=== PATIENT | male | born 1955 | race Caucasian/White ===

== ENCOUNTER 2016-10-22 14:07 | Observation (INO) | payer BC ==
[~2016-10-22] VITALS: Ht 170.2 cm; Wt 84.3 kg
--- NOTE | ~2016-10-22 | CON ---
PATIENT'S NAME: DOLORES MULLIGAN [facility] AGE: 61 Y [address] ROOM: [place] [address] [place]ATION: [facility] [place] DATE: 10/22/2016 Consultation DISCHARGE DATE: FAMILY PHYSICIAN: Andrea Newsome MD ATTENDING PHYSICIAN: KIT GASTON REFERRING PHYSICIAN: JOCELYN WICK MD ADDENDUM: I had an interruption to my dictation. The patient did not have any new focal neurological deficits here and his speech remained normal. No evidence of new aphasia. PRIOR MEDICAL HISTORY: History of hypertension. No known history of diabetes or coronary artery disease. ALLERGIES: NO KNOWN DRUG ALLERGIES. FAMILY HISTORY: Inconsistent with any stroke. SOCIAL HISTORY: He is . 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 He does admit to drinking fairly heavily on a daily basis of 5 hard drinks. He is going cold turkey as of the past 24 hours. He has no withdrawal symptoms of alcohol presently. REVIEW OF SYSTEMS: The patient presented with acute onset of aphasia, essentially motor aphasia and not involving any difficulty with understanding the spoken words, but only a pure difficulty in getting out words with true slurring of his speech and language syntax errors. This lasted only about 15 minutes. An MRI reveals evidence of an acute left frontoparietal stroke in the motor area associated with language. The patient has no neurological deficits. PHYSICAL EXAMINATION: VITAL SIGNS: Otherwise patient's vital signs revealed a pulse of 53 and regular, respiratory rate 18, blood pressure of 121/72, and temperature is 98.2. NEUROLOGIC: Cranial nerves 2 through 12 are intact. Motor exam revealed 5/5 power in the upper and lower extremities proximally and distally. There is normal bulk and tone of muscles. Normal coordination on finger to nose. There is no evidence of any pronator drift. Sensory exam is completely intact. Reflex is symmetric and +2 at the biceps, triceps, patella, and ankle jerks. Plantar reflex is downgoing. His gait is normal, narrow based. PATIENT'S NAME: DOLORES MULLIGAN [facility] AGE: 61 Y [address] ROOM: [address] [address] LOCATION: [facility] [place] DATE: 10/22/2016 Consultation DISCHARGE DATE: FAMILY PHYSICIAN: Andrea Newsome MD ATTENDING PHYSICIAN: KIT GASTON. IMPRESSION: Mr. Mulligan had a small stroke to the language portion of the brain, more specifically to the insula. These strokes are often artery to artery emboli that occur from small thrombi which occur either in situ of the small branch of the insula or could be from an area just proximal to this in the left middle cerebral artery distribution. There is no evidence to support that there is focal stenosis of the left middle cerebral artery distribution. Atrial fibrillation can always be associated with this cryptogenic stroke, however, the patient remains in normal sinus rhythm and this is a very small tiny stroke that would probably not necessarily correlate with an atrial fibrillation event. Even though the patient has a good cholesterol profile with normal cholesterol and low LDL, he is now placed on Lipitor 80 mg p.o. q. day for plaque stabilization. Aspirin was added at 325 mg daily. The patient was not on aspirin at home. His workup included a TTE here in the hospital which reveals no evidence of dilation of the right atrium and normal RV and LV function with normal ejection fraction of nearly 80%. An MRA of the head and neck was also within normal limits. The patient did ask me about alcohol and heavy use and if this is a risk factor for stroke in general. The answer is it may increase a risk for acceleration of atherosclerosis, but it is not necessarily proven. I nonetheless recommend that he should continue to be cold turkey and I probably identifies himself having an alcohol problem in general. I told him that alcohol withdrawal symptoms can occur up to around 1 week which could include some mild tachycardia, feeling sweaty, ill, etc,. From a neurological standpoint, since he is stable and has no new neurological events overnight, he would likely be ready for discharge tomorrow with new regimen of aspirin and Lipitor 80 mg daily. MD HE AZAR/oskar /[id number] d: 10/23/162039 t: 11/01/16 1546, CONSULTATION REPORT
--- NOTE | ~2016-10-22 | CON ---
PATIENT'S NAME: DOLORES MULLIGAN [facility] AGE: 61 Y [address] ROOM: [address] [address] LOCATION: [facility] [place] ADMIT DATE: 10/22/2016 Consultation DISCHARGE DATE: FAMILY PHYSICIAN: Andrea Newsome MD ATTENDING PHYSICIAN: KIT GASTON REFERRING PHYSICIAN: JOCELYN WICK MD The patient was seen in neurologic consultation on 10/23/2016 at 3 p.m. Mr. Mulligan was admitted yesterday afternoon. He is a 61-year-old male patient with prior medical history of hypertension. No known history of coronary artery disease or diabetes. He is fairly active gentleman, who jogs approximately 4 to 5 hours a day and takes good care of himself, though he does have an alcohol problem, drinking around 5 glasses of hard liquor a day. He stated that approximately afternoon he developed sudden onset of slurring of the speech where he could not get out his words. Also the syntax of the words were affected and he knew what he wanted to say, but simply the words could not come out properly. He denied any weakness of his hemibody. He denied any visual field complaints. He did not have a headache at that time. Total time that these symptoms occurred was approximately 15 to 20 minutes and resolved spontaneously. He came to the emergency room where initial CAT scan was negative, however, an MRI done about 1 hour thereafter, showed evidence of an acute fairly small 0.5 cm diffusion-weighted imaging finding in the frontoparietal region likely in the area of the insula. I did not appreciate any other findings on MRI. MRA of the head and neck was performed and they were completely within normal limits with no evidence of any focal stenosis. Carotid artery sonogram was also done, but the results are now pending. Upon his admission to the hospital here, he was essentially put on observation and has been doing well. He has been walking around and he has no new neurologic symptoms. JOCELYN WICK MD JRM/modl /[id number] d: 10/23/162038 t: 11/01/16 1544, CONSULTATION REPORT
--- NOTE | ~2016-10-22 | ECHO ---
Transthoracic Echocardiography Report (TTE) Demographics Patient Name DOLORES MULLIGAN Date of Study 10/23/2016 Patient Number [id number] Visit Number [id number] Date of 1955 Room Number G3205 Gender Male Number Age 61 year(s) Referring Jerod Tavares Audiovisual Production Specialist [place] [facility] Physician MD Sherron Baird MD Physician Interpreting Jarrett Morales Lifter Driver Physician Osmany TORRES Supervising Ordering Sherron Baird MD, MD/P Physician Nurse Stress Magnet Valve Assembler Conclusions Contractility Score Summary Normal Left Ventricular contractility was noted. Summary The estimated left ventricular ejection fraction is 55-60%. Diastolic assessment reveals Grade II pseudonormal diastolic function . Mild concentric left ventricular hypertrophy. Procedure Type of Study TTE procedure:2D Echocardiogram, M-Mode, Doppler , Color Doppler. Procedure Date Date: 10/23/2016 Start: 12:19 PM Study Location: Inpatient Portable Technical Quality: Adequate visualization Indications:CVA. Patient Status: Routine Rhythm: Within normal limits HR: 50 bpm BP: 121/78 mmHg M-Mode/2D Measurements LV Diastolic Dimension: 3.98 cm LV Systolic Dimension: 2.1 cm LV Septum Diastolic: 1.19 cm LV PW Diastolic: 1.15 cm AO Root Dimension: 3.3 cm Cardiac Output: 5.93 l/min LA Dimension: 3.8 cm LVOT: 2.27 cm LVOT VTI: 29.3 cm RV Base: 3.88 cm LV Stroke volume: 118.52 ml RV Length: 5.91 cm TAPSE: 2.78 cm TDI-S': 11.8 cm/s Doppler Measurements AV Mean Gradient: 9 mmHg MV Peak E-Wave: 0.9 m/s LVOT Peak Velocity: 1.29 m/s MV Peak A-Wave: 0.85 m/s MV E/A Ratio: 1.06 TR Velocity:2.1 m/s MV Mean Gradient: 3 mmHg Estimated RAP:5 mmHg Estimated RVSP: 23 mmHg PV Peak Velocity: 1.05 m/s E' Septal Velocity: 10.2 m/s PV Peak Gradient: 4.41 mmHg E' Lateral Velocity: 14.7 m/s Estimated PASP: 22.64 mmHg A' Septal Velocity: 8.55 m/s Findings Left Ventricle Diastolic assessment reveals Grade II pseudonormal diastolic function . Mild concentric left ventricular hypertrophy. Right Ventricle Normal right ventricle structure and function. Left Atrium The left atrium is mildly dilated. Right Atrium Normal right atrial size. IVC measures 2.0 cm with inspiratory collapse. Mitral Valve Mild mitral annular calcification. Aortic Valve The aortic valve is mildly sclerotic. Tricuspid Valve Mild tricuspid regurgitation by color Doppler. Pulmonic Valve Normal pulmonic valve structure and function. Pericardial Effusion No evidence of pericardial effusion. Miscellaneous Visualized portions of the aortic root and ascending aorta appear normal in size. Ascending aorta is mildly dilated. Pleural Effusion No evidence of pleural effusion. Signature dtt: Samm Farias dtd: 10/23/16 1219 Physician Self Edit
--- NOTE | ~2016-10-22 | HP ---
PATIENT'S NAME: DOLORES MULLIGAN [facility] AGE: 61 Y [address] ROOM: [place] [address] LOCATION: [facility] [place] ADMIT DATE: 10/22/2016 History & Physical DISCHARGE DATE: FAMILY PHYSICIAN: Andrea Newsome MD ATTENDING PHYSICIAN: KIT GASTON DATE OF SERVICE: CHIEF COMPLAINT: Confusion and inability to express himself. HISTORY OF PRESENT ILLNESS: The patient is a 61-year-old male with past medical history of hypertension, who earlier in the day developed difficulty expressing himself accompanied by confusion. This persisted and he could not communicate with his . He eventually went to the ER, but at this point his symptoms resolved. Workup in the ER demonstrated a small left parietal subcortical CVA which is 5 mm in diameter and is acute. The patient denies any chest pain, shortness of breath, nausea, vomiting, or palpitations. REVIEW OF SYSTEMS: All systems have been reviewed and negative aside for pertinent positives mentioned above. PAST MEDICAL HISTORY: Hypertension. SURGICAL HISTORY: Distant hernia. SOCIAL HISTORY: The patient has a distant and not pertinent history of tobacco use. He endorses drinking 4 to 5 alcoholic beverages at night, though denies any withdrawal symptoms if he stops drinking abruptly. 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 FAMILY HISTORY: Significant for COPD in his mother and some arrhythmia in his father. CURRENT MEDICATIONS: 1. Amlodipine. 2. Lisinopril. 3. Hydrochlorothiazide. PATIENT'S NAME: DOLORES MULLIGAN [facility] AGE: 61 Y [address] ROOM: [place] [address] LOCATION: [facility] [place] ADMIT DATE: 10/22/2016 History & Physical DISCHARGE DATE: FAMILY PHYSICIAN: Andrea Newsome MD ATTENDING PHYSICIAN: KIT GASTON 4. Metoprolol. PHYSICAL EXAMINATION: VITAL SIGNS: Temperature 98.2, pulse is 65, respirations 21, blood pressure 126/73, and saturating 96% on room air. GENERAL: Well-developed and well-nourished middle-aged male, in no acute distress. NEURO: A detailed neurological exam shows an NIH score of 0. LYMPHATIC: Lymphatic exam shows no cervical lymphadenopathy. ENDOCRINE: Shows no thyromegaly. LUNGS: Clear to auscultation. HEART: Heart rate is regular. No appreciable murmurs, gallops, or rubs. GI: Abdomen is soft and nontender. : No costovertebral angle tenderness. VASCULAR: 2+ pedal pulses. MUSCULOSKELETAL: Unremarkable. SKIN: Warm and dry. PSYCHIATRIC: Reveals appropriate mood, cognition, and affect. Studies in the ER include an unremarkable CT of his head and MRI with a small left parietal subcortical acute infarct of 5 mm and a potassium of 2.9 which improved to 3.4. Hemoglobin A1c is 5.5. ASSESSMENT AND PLAN: 1. This is a 61-year-old male, who was admitted with acute cerebrovascular accident. In terms of management of his cerebrovascular accident, we will opt for a period of permissive hypertension and hold his blood pressure medicines. We will start him on full dose aspirin and high-dose statin. We will get a Neurology consultation and a full stroke workup with a 2-dimensional echocardiogram, carotid ultrasounds, MRIs and MRAs as well as lipids in the morning. 2. Hypokalemia. The patient does endorse occasional cramps and we will check his BMP in the morning as well as magnesium. We will also check his urine potassium and creatinine. 3. Hypertension. We will hold off on his medicines as above. 4. Deep venous thrombosis prophylaxis will be instituted if the patient is in the hospital for longer than 48 hours. Additional management depend on clinical course. Time dedicated to this patient's encounter is 35 minutes. LEANNE WANG MD PATIENT'S NAME: DOLORES MULLIGAN [facility] AGE: 61 Y [address] ROOM: [place] [address] LOCATION: [facility] [place] ADMIT DATE: 10/22/2016 History & Physical DISCHARGE DATE: FAMILY PHYSICIAN: Andrea Newsome MD ATTENDING PHYSICIAN: KIT GASTON/oskar /[id number] D: T: HISTORY & PHYSICAL
--- NOTE | ~2016-10-22 | ER ---
PATIENT'S NAME: DOLORES MULLIGAN [facility] AGE: 61 Y [address] ROOM: [place] [address] LOCATION: [facility] [place] ADMIT DATE: 10/22/2016 ER/Outpatient Report DISCHARGE DATE: FAMILY PHYSICIAN: Andrea Newsome MD ATTENDING PHYSICIAN: KIT GASTON Time of Arrival: 1407 hours. Time of Evaluation: 1408 hours. CHIEF COMPLAINT: Loss of speech. HISTORY OF PRESENT ILLNESS: The patient is a 61-year-old male who presents to the emergency department today with a chief complaint of loss of speech. He reports it occurred just prior to arrival. He reports he had a mild headache as well and felt dizzy. He reports he is having difficulties talking with slurred speech. He was having aphasia where he was having issues of finding his words. He denies any difficulty swallowing. No difficulty talking. No vision changes. No mental status changes. Otherwise, no nausea or vomiting. No seizure-like activity. No numbness. PAST MEDICAL HISTORY: Hypertension and anxiety. PAST SURGICAL HISTORY: Hernia. SOCIAL HISTORY: The patient denies any tobacco use. Reports occasional alcohol use. Denies any illicit drug use. ALLERGIES: NO KNOWN DRUG ALLERGIES. MEDICATIONS: 1. Lisinopril. 2. Metoprolol. 3. Amlodipine. REVIEW OF SYSTEMS: All systems are reviewed by myself and negative with the exception of those discussed in the HPI and past medical history. PHYSICAL EXAMINATION: PATIENT'S NAME: DOLORES MULLIGAN [facility] AGE: 61 Y [address] ROOM: [place] [address] LOCATION: [facility] [place] ADMIT DATE: 10/22/2016 ER/Outpatient Report DISCHARGE DATE: FAMILY PHYSICIAN: Andrea Newsome MD ATTENDING PHYSICIAN: KIT GASTON VITAL SIGNS: Weight 89 kg, blood pressure 138/75, pulse 63, respiratory rate 16, temperature 97.6, oxygen saturation 95% on room air. GENERAL: The patient is a 61-year-old male, who appears stated age, in no acute distress. HEENT: Head: Normocephalic and atraumatic. Pupils are equal, round, and reactive to light and accommodation. Extraocular motions are intact. Nares are patent bilaterally. TMs are clear. Oropharynx is clear. NECK: Supple. There is no nuchal rigidity. CARDIOVASCULAR: Regular rate and rhythm. No murmurs, rubs, or gallops. LUNGS: Clear to auscultation bilaterally. No wheezes, rales, or rhonchi. ABDOMEN: Soft, nontender, and nondistended. No rebound, rigidity, or guarding. MUSCULOSKELETAL: The patient moves all 4 extremities. 5/5 muscle strength. NEUROLOGICAL: GCS 15. Alert and oriented x4. Cranial nerves 2 through 12 are intact. Normal [id number]. Normal rapid hand movement. Equal computer operations supervisor strength bilaterally. Downward going toes. No clonus. 2/4 reflexes. SKIN: Warm and dry. There are no rashes or lesions noted. LABS AND X-RAYS: CBC is normal. CT scan of the brain is normal. EKG shows sinus rhythm with a rate of 63, normal axis, NJ interval 210, otherwise negative. No ST elevation, ST depression, or T-wave inversion. Fingerstick blood sugar is 109. Coags are normal. Cardiac enzymes are normal. Urinalysis is negative. CMP is normal except for potassium 2.9. LFTs are normal. MRI of the brain was obtained, does show a small left parietal subcortical infarct which is 5 mm. IMPRESSION: 1. Acute left parietal subcortical infarct, 5 mm. 2. Hypokalemia. 3. Initial visit. EMERGENCY DEPARTMENT COURSE: The patient was brought back to the examination room. Seen and evaluated by myself. An IV is established. Laboratory analysis and imaging are obtained as described above. The patient is given a KCl 60 mEq p.o. as well as 20 mEq IV over 2 hours. I have discussed the results with the radiologist, does appear to have an acute infarct on MR. I have discussed the results with the patient's who is at the bedside. I have recommended admission to the hospital for further evaluation, treatment, and management. The patient's symptoms have completely resolved at this time thus following out of the tPA indication. Certainly, the risks of the medication outweigh the potential benefits at this time since he is asymptomatic. His NIH stroke scale is currently 0 upon my evaluation here. I have discussed the case with Dr. Gaston with the hospitalist Service. He does agree to accept the patient for further PATIENT'S NAME: DOLORES MULLIGAN [facility] AGE: 61 Y [address] ROOM: [id number] [place], [place] [address] LOCATION: [facility] [place] ADMIT DATE: 10/22/2016 ER/Outpatient Report DISCHARGE DATE: FAMILY PHYSICIAN: Andrea Newsome MD ATTENDING PHYSICIAN: KIT GASTON evaluation, treatment, and management. DISPOSITION: The patient is admitted under the care of the hospitalist Service in stable condition. DO MAIDA PARK/oskar /[id number] d: 10/22/162235 t: 10/26/161911, OUTPATIENT REPORT
--- NOTE | ~2016-10-22 | CON ---
PATIENT'S NAME: DOLORES MULLIGAN [facility] AGE: 61 Y [address] ROOM: [place] [address] [place]: [facility] [place]MIT DATE: 10/22/2016 Consultation DISCHARGE DATE: 10/24/2016 FAMILY PHYSICIAN: Andrea Newsome MD ATTENDING PHYSICIAN: Juvenal Siu REFERRING PHYSICIAN: Henrry Avalos MD Consult for Dr. Hernandez. This pleasant 61-year-old gentleman who is referred for rehab evaluation, was admitted on 10/22 with a sudden onset of expressive aphasia which cleared by the time he came to emergency room in about 15-20 minutes. He lives here with in [place] and does not give history of a similar episode in the past. He could now move all four. He could talk, express, and understand without difficulty. His voice is clear and not wet. There is no facial droop. No visual cut. Denied any headache. Denied any history of dizziness. No nausea, no vomiting, no double vision before. Denied any trauma. No shortness of breath, no chest pain, no tachycardia, no fever, no cough, no expectoration. He has distant history of surgery for hernia. He also has been followed for hypertension and dyslipidemia. At this present time, he is alert oriented x3. Can comprehend and express without difficulty. His voice is clear and not wet as I mentioned. CT scan on workup here shows a small 5-mm round ischemic stroke, acute, in the left parietal subcortical region. At the present time, he is neurologically intact. Vital Signs: Blood pressure 124/82, temperature 97.1, pulse 59, respirations 16. He is 5 feet 7 inches and weighs 84.3 kg. He is on the following medications: 1. Lipitor. 2. NaCl 0.9%. 3. Aspirin. 4. KCl. 5. Metoprolol succinate. He can, at the present time, walk 600 feet without much difficulty, full PATIENT'S NAME: DOLORES MULLIGAN [facility] AGE: 61 Y [address] ROOM: [place] [address] LOCATION: [facility] [place] ADMIT DATE: 10/22/2016 Consultation DISCHARGE DATE: 10/24/2016 FAMILY PHYSICIAN: Andrea Newsome MD ATTENDING PHYSICIAN: Juvenal Siu weightbearing, normal pattern of gait without assistive device. He is at the present time, as I mentioned, neurologically intact and good control over bowel and bladder. Can swallow without difficulty. He enjoys drawing and he is doing very well with that. He showed me how he can give a sketch of me in a short period of time which was proving that he is neurologically doing very well. ASSESSMENT AND PLAN: At the present time, I would advise that he can be discharged to home. I will follow on him in 1-week time. I have advised him not to drive until he is re- evaluated and to refrain from any alcoholic beverage. All the above was explained to him. I would prefer that he be given a brochure about stroke and he has already been on the internet for stroke and signs and symptoms. I will see him in another 1 week post discharge. Thank you for this referral. I will follow on him while here. RYAN CHAVEZ MD WMS/modl /[id number] d: 10/24/161958 t: 10/25/161121, CONSULTATION REPORT
[2016-10-22 14:26] LABS: BASOPHIL # 0.1 K/uL (0.0-0.2); BASOPHIL % 0.8 %; EOSINOPHIL # 0.2 K/uL (0.0-0.5); EOSINOPHIL % 2.9 %; HEMATOCRIT 42.4 % (37.0-53.0); HEMOGLOBIN 15.4 g/dL (11.0-16.0); IMMATURE GRANULOCYTE % 0.2 %; MCH 33.3 pg (27.0-34.0); MCHC 36.3 gm/dL (32.0-36.5); MCV 91.6 fl (83.0-98.0); MONOCYTE # 0.9 K/uL (0.0-1.0); MONOCYTE % 10.6 %; MPV 10.1 fl (9.4-12.4); NEUTROPHIL # (ANC) 4.1 K/uL (1.4-9.0); NEUTROPHIL % 49.5 %; NRBC % 0 /100WBC (0-0.00); PLATELET COUNT 229 K/uL (150-450); RBC 4.63 M/uL (3.50-5.50); RDW-CV 12.5 % (11.9-14.6); WBC 8.4 K/uL (4.0-11.0)
[2016-10-22 14:45] LABS: PROTIME 10.9 SECONDS (9.6-11.1); PTT 27 SECONDS (25-32)
[2016-10-22 14:49] LABS: BILIRUBIN URINE NEGATIVE (NEGATIVE); BLOOD URINE NEGATIVE /UL (NEGATIVE); GLUCOSE URINE NEGATIVE (NEGATIVE); KETONE URINE NEGATIVE (NEGATIVE); LEUKOCYTES URINE NEGATIVE /UL (NEGATIVE); NITRITE URINE NEGATIVE (NEGATIVE); PROTEIN URINE NEGATIVE (NEGATIVE); UROBILINOGEN URINE 1 mg/dL (NORMAL)
[2016-10-22 14:50] LABS: COLOR URINE YELLOW (YELLOW); TURBIDITY URINE CLEAR (CLEAR)
[2016-10-22 14:51] LABS: ALBUMIN 4.2 gm/dL (3.5-5.0); ALK PHOS 37 IU/L (33-138); ALT 38 IU/L (12-78); AST 31 IU/L (10-40); BLOOD UREA NITROGEN 23 mg/dL (6-24); CALCIUM 8.7 mg/dL (8.5-10.5); CHLORIDE 102 mMol/L (96-110); CO2 25 mMol/L (22-32); CPK 213 IU/L (35-332); CREATININE 1.2 mg/dL (0.6-1.3); ESTIMATED GFR (MDRD EQUATION) > 60; SODIUM 139 mMol/L (135-145); TOTAL BILIRUBIN 1.8 mg/dL (0.0-1.5); TOTAL PROTEIN 7.6 g/dL (6.0-8.4)
[2016-10-22 14:53] LABS: ANION GAP 14.9 (10.0-19.0); POTASSIUM 2.9 mMol/L (3.7-5.1)
--- NOTE | 2016-10-22 17:54 | NUR ---
Pt was at work this afternoon and while typing was unable to recognize his words and couldn't get his words out. He also had a slight DAMON. brought pt to ER w/in 10 minutes of episode. By the time pt had been in ER his speech had returned and he was experiencing no deficits. Pt's K+ was 2.9. He was given 60 meq PO and 20 meq IV was started in ER. Hx of HTN, former smoker, does drink approx 4 drinks a day, which he states this is decreased from previous. Pt voided x 3 in ER. No complaints.
[2016-10-22] MEDS ORDERED: TOPROL XL 5050 MG PO (20:20)
[2016-10-22] MEDS ORDERED: NORVASC10 MG PO (20:21)
[2016-10-22] MEDS ORDERED: LISINOPRIL-HCT1 EAC2 PO (20:23)
[2016-10-22 20:53] LABS: ANION GAP 11.4 (10.0-19.0); BLOOD UREA NITROGEN 21 mg/dL (6-24); CALCIUM 8.5 mg/dL (8.5-10.5); CHLORIDE 104 mMol/L (96-110); CO2 29 mMol/L (22-32); CREATININE 1.1 mg/dL (0.6-1.3); ESTIMATED GFR (MDRD EQUATION) > 60; POTASSIUM 3.4 mMol/L (3.7-5.1); SODIUM 141 mMol/L (135-145)
--- NOTE | 2016-10-23 03:27 | NUR ---
Significant Event:PT AAOX3.PLEASANT WITH STAFF AND CARES. AT BEDSIDE. UP WITH SUPERVISION DOES WELL WITH TRANSFERS. NURSE SWALLOW ASSESMENT COMPLETED AND PT PASSES SO CARDIAC DIET ORDERED. PT SPEECH BASELINE.DENIES PAIN OR DAMON DURING SHIFT.CONT OF BOWEL AND BLADDER. UA A SENT DOWN AT 0330. PT IV RUNNING NACL AT 75ML/HR. TAKE MEDICATION WHOLE WITH NO COMPLICATIONS. NO NUMBNESS/TINGLING NOTED.HAND GRASP STRONG AND EAQUAL. MOVES EXTERMITIES SPONT AND ON COMMAND.ON ROOM AIR.USES CALL LIGHT APPROP. AT BEDSIDE. Follow up:
[2016-10-23 05:52] LABS: ANION GAP 9.3 (10.0-19.0); BLOOD UREA NITROGEN 19 mg/dL (6-24); CALCIUM 8.2 mg/dL (8.5-10.5); CHLORIDE 107 mMol/L (96-110); CO2 30 mMol/L (22-32); ESTIMATED GFR (MDRD EQUATION) > 60; POTASSIUM 3.3 mMol/L (3.7-5.1); SODIUM 143 mMol/L (135-145)
--- NOTE | 2016-10-23 16:45 | NUR ---
Significant Event: Patient alert and oriented. Up to the bathroom and ambulated in the hallway with standby assist. Neuro checks WNL and NIHSS score done by a NTU nurse was 0. Denies discomfort. IV rate increased to 125ml for 12 hrs and then saline lock at 0040. Toprol dc'd. K+ level at 3.3 this morning and patient received KCL 40 meq orally at 1515 and will receive another dose at 1900. Carotid doppler done. Dr Downey consulted this afternoon and no new orders from him. PT/OT consult and Dr Almazan to consult in am. Follow up: KCL 40 meq orally at 1900 and saline lock IV at 0040. Echo in the morning.
[2016-10-24 05:52] LABS: EOSINOPHIL # 0.2 K/uL (0.0-0.5); EOSINOPHIL % 4.5 %; HEMATOCRIT 38.7 % (37.0-53.0); HEMOGLOBIN 13.6 g/dL (11.0-16.0); LYMPHOCYTE # 1.7 K/uL (0.8-4.0); LYMPHOCYTE % 42.1 %; MCH 33.2 pg (27.0-34.0); MCHC 35.1 gm/dL (32.0-36.5); MCV 94.4 fl (83.0-98.0); MONOCYTE # 0.5 K/uL (0.0-1.0); MONOCYTE % 11.5 %; MPV 10.1 fl (9.4-12.4); NEUTROPHIL # (ANC) 1.6 K/uL (1.4-9.0); NEUTROPHIL % 40.9 %; NRBC % 0 /100WBC (0-0.00); RDW-CV 12.6 % (11.9-14.6)
[2016-10-24 05:53] LABS: PLATELET COUNT 179 K/uL (150-450)
[2016-10-24 06:05] LABS: ANION GAP 9.6 (10.0-19.0); BLOOD UREA NITROGEN 14 mg/dL (6-24); CALCIUM 7.9 mg/dL (8.5-10.5); CHLORIDE 111 mMol/L (96-110); CO2 26 mMol/L (22-32); CREATININE 0.9 mg/dL (0.6-1.3); ESTIMATED GFR (MDRD EQUATION) > 60; POTASSIUM 3.6 mMol/L (3.7-5.1); SODIUM 143 mMol/L (135-145)
--- NOTE | 2016-10-24 06:54 | NUR ---
Significant Event: Pt alert and oriented. Up ind in room. SL. Echo today. No deficites. NTU RN did not come and do a neuro assessment. Neuros intact. d/c home today, Follow up:
--- NOTE | 2016-10-24 10:05 | NUR ---
1005 Introduced self/role to patient. He lives here in [place] with his Cristy. 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 Added my name to his marker board. Hopes to go home today. Will continue to follow.
[2016-10-24] MEDS ORDERED: ASPIRIN (CHILDR81 MG PO (13:21)
[2016-10-24] MEDS ORDERED: LIPITOR40 MG PO (13:22)
--- NOTE | 2016-10-24 15:14 | NUR ---
DISCHARGE: Pt. was explained discharge instructions, educated on new medications, lipitor and aspirin, and educated on stroke d/c instructions. Verbalized understanding, no questions or concerns. Left with all belongings and prescriptions. IV removed by primary RN. Taken to front door by aide and driven home by . Will follow up as ordered.
--- NOTE | 2016-10-24 15:16 | NUR ---
patient dismissed to home at 1510. belongings sent with pat. patient teaching done by virtual nurse Samuel. to front door with TA to meet in family car.
== END 2016-10-24 15:10 | disposition disaster alternative care site (69) ==
LOC: GMED 14:07 → GMSU 17:29
PROVIDERS: Emergency Medicine; Hospitalist; Internal Medicine; ADMIT Internal Medicine
DX: I63.9 Cerebral infarction, unspecified (principal); I69.320 Aphasia following cerebral infarction; E87.6 Hypokalemia; I10 Essential (primary) hypertension; I82.409 Acute embolism and thrombosis of unspecified deep veins of unspecified lower extremity; E78.5 Hyperlipidemia, unspecified; Z79.899 Other long term (current) drug therapy
CPT/HCPCS: G0378; J3480; J7030; J7040